=== PATIENT | male | born 1985 | race Caucasian/White ===

== ENCOUNTER 2019-02-12 18:19 | Emergency (ER) | payer MEDICAID ==
[~2019-02-12] VITALS: Ht 177.8 cm; Wt 85.3 kg
[~2019-02-12 18:19] MED LIST: AMOX-430 PO; HYDR-4384 PO
[2019-02-12 18:34] VITALS: BP 111/72
[2019-02-12] MEDS ORDERED: LIDOCAINE 0.5%-EPI 1:200,000 50 ML VIAL ONE (18:47)
[2019-02-12] MEDS ORDERED: LIDOCAINE 1%-EPI 1:100,000 20 ML VIAL ONE (18:47)
--- NOTE | 2019-02-12 19:04 | NUR ---
SEEN AND EXAMINED BY JOANNE JOHNSON
--- NOTE | 2019-02-12 19:46 | NUR ---
Patient discharged to home in stable condition. Written and verbal after care instructions given. Patient verbalizes understanding of instruction.
--- NOTE | 2019-02-12 19:46 | NUR ---
INCISION AND DRAINAGE DONE BY JOANNE JOHNSON
== END 2019-02-12 19:47 | disposition home or self-care (01) ==
LOC: ER 18:21
DX: L02.31 Cutaneous abscess of buttock (principal); F17.200 Nicotine dependence, unspecified, uncomplicated; Z71.6 Tobacco abuse counseling; Z79.899 Other long term (current) drug therapy
CPT/HCPCS: 10060; 99283; 99406; A6403; A6407; J3490 ×2

== ENCOUNTER 2019-04-17 00:30 | Emergency (ER) | payer MEDICAID ==
[~2019-04-17] VITALS: Ht 172.7 cm; Wt 81.6 kg
[2019-04-17] MEDS ORDERED: methylPREDNISolone SOD SUCC 125 MG/2ML VIAL ONE (00:55)
[2019-04-17] MEDS ORDERED: diphenhydrAMINE HCL 50 MG/ML VIAL ONE (00:55)
[2019-04-17] MEDS ORDERED: FAMOTIDINE/PF INJ 20 MG/2 ML VIAL IV ONE ×2 (00:57→01:00)
[2019-04-17] MEDS ORDERED: methylPREDNISolone SOD SUCC 125 MG/2ML VIAL IV ONE (01:00)
[2019-04-17] MEDS ORDERED: IV NS 0.9% 1,000 ML BAG IV ONE (01:00)
[2019-04-17] MEDS ORDERED: diphenhydrAMINE HCL 50 MG/ML VIAL IV ONE (01:00)
--- NOTE | 2019-04-17 01:08 | NUR ---
BIBS. TO ER BED 2. AAOX4. NOT IN RESP DISTRESS NOTED, BREATHING EVEN AND UNLABORED. NO ADVENTITIOUS LUNG SOUND. AMBULATORY. CAME IN FOR ALLERGIC REACTION AFTER BEING EXPOSED TO INSULATING MATERIAL WHILE INSPECTING ATIQUE. PT IS NOTED WHILE GEN PRASANTH REDNESS AND ITCHING. MD WAS AT BEDSIDE FOR EVAL. ORDERS RECEIVED NOTED AND CARRIED OUT. IV LINE OBTAINED ON THE L AC AND MEDICATED ORDERED
--- NOTE | 2019-04-17 01:57 | NUR ---
PT IS MEDICALLY CLEARED BY MD AND READY FOR DISCHARGE. PT IS STILL DROWSY D/T MEDICATION RECEIVED. PT IS TO STAY UNTIL HE IS ABLE TO DRIVE. OTHERWISE HE CAN HAVE SOMEONE PICK HIM UP
--- NOTE | 2019-04-17 02:57 | NUR ---
PT AMBULATED FROM BED TO BATHROOM ON STEADY GAIT W/O ASSIST.
[2019-04-17 03:02] VITALS: BP 109/71
== END 2019-04-17 03:02 | disposition home or self-care (01) ==
LOC: ER 00:32
DX: T78.40XA Allergy, unspecified, initial encounter (principal); F17.200 Nicotine dependence, unspecified, uncomplicated; X58.XXXA Exposure to other specified factors, initial encounter
CPT/HCPCS: 96374; 96375; 99284; J1200; J2930; J3490; J7030

== ENCOUNTER 2021-06-10 12:26 | Emergency (ER) | payer MEDICAID ==
[~2021-06-10] VITALS: Ht 177.8 cm; Wt 90.7 kg
--- NOTE | 2021-06-10 12:27 | NUR ---
BIB SELF C/O L LOWER ABDOMINAL PAIN RADIATES TO L GROIN AND LOWER BACK SINCE YESTERDAY. AMBULATORY, AAOX4.
--- NOTE | 2021-06-10 12:36 | NUR ---
AT BEDSIDE FOR EVAL.
--- NOTE | 2021-06-10 12:45 | NUR ---
URINE SAMPLE COLLECTED AND SENT TO LAB
[2021-06-10 14:06] LABS: BILIRUBIN,URINE SMALL (NEGATIVE); COLOR,URINE YELLOW (YELLOW); LEUKOCYTE ESTERASE ,URINE NEGATIVE (NEGATIVE); NITRITE, URINE NEGATIVE (NEGATIVE); PROTEIN,URINE NEGATIVE (NEGATIVE); UGLUCOSE 250 MG/DL mg/dL (NEGATIVE); UROBILINOGEN,URINE 0.2 EU/dL (0.2)
[2021-06-10] MEDS ORDERED: IBUP-1955 PO (14:27)
--- NOTE | 2021-06-10 15:01 | NUR ---
Patient discharged to home in stable condition. Written and verbal after care instructions given. Patient verbalizes understanding of instruction.
[2021-06-10 15:04] VITALS: BP 148/90
== END 2021-06-10 15:05 | disposition home or self-care (01) ==
LOC: ER 12:26
DX: I86.1 Scrotal varices (principal); F17.200 Nicotine dependence, unspecified, uncomplicated; Z79.1 Long term (current) use of non-steroidal anti-inflammatories (NSAID); Z79.891 Long term (current) use of opiate analgesic; Z79.899 Other long term (current) drug therapy
CPT/HCPCS: 76870-TC

== ENCOUNTER 2021-09-11 13:42 | Emergency (ER) | payer MEDICAID ==
[~2021-09-11] VITALS: Ht 172.7 cm; Wt 96.2 kg
[~2021-09-11 13:42] MED LIST changes: +IBUP-1955 PO
--- NOTE | 2021-09-11 13:55 | NUR ---
BIBS FOR C/O R GREATER TOE PAIN, AVULSION S/P CRUSH INJURY 1 HOUR AGO. RATES PAIN 10/02. WILL CONTINUE TO MONITOR THE PATIENT.
[2021-09-11] MEDS ORDERED: HYDROCODONE/APAP 10/325MG TABLET ONE (14:07)
[2021-09-11] MEDS ORDERED: LIDOCAINE 2% 20 ML MDV ONE (14:16)
[2021-09-11] MEDS ORDERED: LIDOCAINE 2% 20 ML MDV TP ONE (14:30)
[2021-09-11] MEDS ORDERED: HYDROCODONE/APAP 10/325MG TABLET PO ONE (14:30)
[2021-09-11] MEDS ORDERED: HYDR-3972 PO (15:58)
[2021-09-11] MEDS ORDERED: IBUP-1957 PO (15:58)
[2021-09-11] MEDS ORDERED: CEPH500C2 PO (15:58)
--- NOTE | 2021-09-11 16:06 | NUR ---
Patient discharged to home in stable condition. Written and verbal after care instructions given. Patient verbalizes understanding of instruction.
[2021-09-11 16:07] VITALS: BP 142/84
== END 2021-09-11 16:08 | disposition home or self-care (01) ==
LOC: ER 13:53
DX: S92.421A Displaced fracture of distal phalanx of right great toe, initial encounter for closed fracture (principal); F17.200 Nicotine dependence, unspecified, uncomplicated; Z79.899 Other long term (current) drug therapy; W22.8XXA Striking against or struck by other objects, initial encounter; Y93.89 Activity, other specified; Y92.89 Other specified places as the place of occurrence of the external cause; Y99.8 Other external cause status
CPT/HCPCS: 64450; 99284; 73660; A6403; J3490